=== PATIENT | female | born 1960 | race Caucasian/White ===

== ENCOUNTER 2016-12-05 14:50 | Inpatient (IN) | payer MEDICARE ==
[~2016-12-05] VITALS: Ht 165.1 cm; Wt 59.7 kg
--- NOTE | ~2016-12-05 | HP ---
PATIENT'S NAME: DEBBIE MAGALLANES [facility] AGE: 56 Y [address] ROOM: [place] [address] LOCATION: [facility] ADMIT DATE: 12/05/2016 History & Physical DISCHARGE DATE: FAMILY PHYSICIAN: JEANE TYLER MD ATTENDING PHYSICIAN: YUE SIDDIQUI DATE OF SERVICE: 12/05/2016 CHIEF COMPLAINT: Large left-sided acute subdural hematoma with significant mass effect, dilated left pupil. HISTORY OF PRESENT ILLNESS: The patient is a 56-year-old female patient who had probably an unwitnessed fall last night and was found at [facility] to have a large left-sided acute subdural hematoma with significant mass effect and midline shift. According to the notes from the referring physician, the patient was found laying in the lobby by ENT. She was transferred to the emergency at [facility]. Over there, the patient was unresponsive. The patient's examination was remarkable for asymmetry of her pupils. The left pupil was 5-mm and nonreactive. Right pupil was 3-mm and reactive. I met the patient in our emergency. The patient was intubated and sedated. Further history was limited. PAST MEDICAL AND SURGICAL HISTORY: Obtained from the notes. It is positive for alcohol abuse, anxiety, low back pain, depression, hyperlipidemia, hypertension, cerebrovascular accident, seizures, osteopenia, and hypothyroidism. It is also positive for lumpectomy, left breast, back surgery, and cholecystectomy. MEDICATIONS: Listed in the patient's chart. ALLERGIES: NO KNOWN DRUG ALLERGIES. SOCIAL HISTORY: Obtained from the notes. It is positive for significant alcohol intake. The patient lives alone. She is an active smoker. PATIENT'S NAME: DEBBIE MAGALLANES [facility] AGE: 56 Y [address] ROOM: [place] [address] LOCATION: [facility] ADMIT DATE: 12/05/2016 History & Physical DISCHARGE DATE: FAMILY PHYSICIAN: JEANE TYLER MD ATTENDING PHYSICIAN: YUE SIDDIQUI REVIEW OF SYSTEMS: Unobtainable given the patient's intubation and level of consciousness. PHYSICAL EXAMINATION: GENERAL: The patient was intubated and sedated. VITAL SIGNS: Systolic blood pressure was more than 160. HEAD: It was atraumatic. The sclerae examination was normal. CARDIOVASCULAR: She had palpable pulses on the upper extremities. NEUROLOGIC: It was limited. The pupils were 3-mm on the right and reactive to light, 5-mm on the left and sluggishly reactive. She had gag reflex. She had no motor movements on the upper extremities, but had flicker movements on the left lower extremity. GAIT: Not done. LYMPHATIC: Not done. INVESTIGATIONS: Noncontrast CT head done in [place], which I personally reviewed. It showed evidence of a very large left-sided acute subdural hematoma with significant mass effect and midline shift. IMPRESSION: A 56-year-old female patient who was diagnosed with a large left-sided acute subdural hematoma today. She was found unresponsive. She was taken to the emergency and further investigations showed large left subdural hematoma. Her examination at [facility] was remarkable for asymmetry of the pupils, left larger than the right,the patient was unresponsive. PLAN: The patient will be taken urgently for left craniotomy and evacuation of acute subdural hematoma +/- insertion of ventriculostomy tube. I discussed the situation with the neurointensivist here Dr. Knowles. Given the size of the hematoma and her concerning neurological examination, I recommended urgent evacuation of the hematoma plus-minus insertion of intracranial pressure monitor/ventriculostomy. After an emergency surgical consent was signed, the patient was taken urgently to surgery. It was pleasure taking care of this patient and thanks for having us involved. PATIENT'S NAME: DEBBIE MAGALLANES [facility] AGE: 56 Y [address] ROOM: [place] [address] LOCATION: [facility] ADMIT DATE: 12/05/2016 History & Physical DISCHARGE DATE: FAMILY PHYSICIAN: JEANE TYLER MD ATTENDING PHYSICIAN: YUE SIDDIQUI MD AB/soumya /[id number] CC: Jeane Tyler MD D: 202 T: 716 HISTORY & PHYSICAL
--- NOTE | ~2016-12-05 | OR ---
[facility] 56 [facility] [address] ROOM: [place] [address] LOCATION: GICU ADMIT DATE: 12/05/2016 OR/Procedure Report DISCHARGE DATE: FAMILY PHYSICIAN: JEANE CESAR MD ATTENDING PHYSICIAN: YUE SIDDIQUI SURGEON: Mohamud Knowles MD NUT DEHYDRATOR OPERATOR: Jacob Blackburn RN. DATE OF PROCEDURE: 12/05/2016 PROCEDURE: 1. Right 20-gauge radial arterial line. 2. Right internal jugular 8.5 Qatari quad lumen central line placement. INDICATION FOR PROCEDURE: 1. Need for perioperative [id number] blood pressure monitoring as well as frequent arterial blood gas analysis. 2. Need for central venous access for administration of fluid and blood products. Central venous pressure monitoring. PREOPERATIVE DIAGNOSES: 1. Large left subdural hematoma with impending herniation. 2. Obtundation. 3. History of alcohol abuse. 4. Hypertension. 5. Hyperlipidemia. 6. History of tobacco abuse. 7. Hypothyroidism. 8. Chronic anemia. POSTOPERATIVE DIAGNOSES: 1. Large left subdural hematoma with impending herniation. 2. Obtundation. 3. History of alcohol abuse. 4. Hypertension. 5. Hyperlipidemia. 6. History of tobacco abuse. 7. Hypothyroidism. 8. Chronic anemia. COMPLICATIONS: None noted. ESTIMATED BLOOD LOSS: Minimal. COMPLICATIONS: None noted. PATIENT'S NAME: DEBBIE MAGALLANES [facility] AGE: 56 Y [address] ROOM: [place] [address] LOCATION: [facility] ADMIT DATE: 12/05/2016 OR/Procedure Report DISCHARGE DATE: FAMILY PHYSICIAN: JEANE CESAR MD ATTENDING PHYSICIAN: YUE SIDDIQUI CONSENT: Not obtained preoperatively as the patient was obtunded and family members were not immediately present. Given her status of impending herniation we rushed to the operating room for emergent subdural evacuation. DESCRIPTION OF PROCEDURE: In the operating room, the patient in supine position with head of bed slightly elevated. Right wrist supinated. Sterile prep with ChloraPrep. Utilizing sterile real-time ultrasound guidance, a 20- gauge Arrow catheter was used to cannulate the right radial artery on the first attempt without difficulty. Pulsatile blood flow. Over a wire a 20-gauge Arrow catheter was inserted without difficulty. Wire and needle removed intact. Catheter de-aired and flushed with saline solution. Sterile occlusive Tegaderm dressing applied. Good correlation noninvasive blood pressure monitoring. After induction of anesthesia, the patient placed in supine position, ultrasound for confirmation of right internal jugular venous anatomy. Sterile prep with ChloraPrep x2 to the right neck. Sterile full-body drape, sterile gown and gloves used. Surgical mask and cap worn at all times. Utilizing 16- gauge needle in the anterior approach, right internal jugular vein was cannulated the first attempt without difficulty. Nonpulsatile blood flow. Dark blood aspirated. Over a wire, an 8.5 Qatari quad lumen central line was inserted to 16 cm without difficulty. Wire and needle removed intact. Catheter sutured in place. Sterile occlusive Tegaderm dressing applied. The patient tolerated the procedure well. Stat portable chest x-ray is ordered postoperatively. MOHAMUD KNOWLES MD RRS/modl /[id number] d: 12/06/16 0005 t: 12/14/16 0853, OPERATIVE SUMMARY
--- NOTE | ~2016-12-05 | OR ---
PATIENT'S NAME: DEBBIE MAGALLANES [facility] AGE: 56 Y [address] ROOM: [place] [address] LOCATION: GICU ADMIT DATE: 12/05/2016 OR/Procedure Report DISCHARGE DATE: FAMILY PHYSICIAN: JEANE CESAR MD ATTENDING PHYSICIAN: ADONIS CHARLES SURGEON: Adonis Charles MD ASSOCIATE BUYER: DATE OF PROCEDURE: 12/05/2016 ANESTHESIOLOGIST: Cade Knowles MD. ANESTHESIA: General. COMPLICATIONS: None. ESTIMATED BLOOD LOSS: 100 mL. PREOPERATIVE DIAGNOSIS: Large left-sided acute subdural hematoma with significant mass effect. POSTOPERATIVE DIAGNOSIS: Large left-sided acute subdural hematoma with significant mass effect. PROCEDURE: Left-sided craniotomy and evacuation of acute subdural hematoma. CLINICAL HISTORY: The patient is a 56-year-old female patient, known to be a heavy alcoholic, was found unresponsive earlier today. She was taken to the emergency in [place] and the patient was only responsive to painful stimulation. She was breathing spontaneously. She was noticed to have bruising on the left side of her face. It was also noticed that she has asymmetry of her pupils, left larger than the right side and was nonreactive. I was contacted and reviewed the imaging. I recommended transferring the patient over for urgent surgical intervention. I also recommended intubating the patient and administering 1 g/kg mannitol given the fixed and dilated left pupil. The patient arrived to our hospital intubated and ventilated. Her examination confirmed asymmetry of the pupils, left larger than the right side. It was sluggishly reactive to light here. I discussed the situation with neurointensivist physician. I recommended urgent evacuation. The patient was taken urgently to surgery. DESCRIPTION OF PROCEDURE: The patient was brought urgently from the emergency to the main operating theater, where she was given general anesthetic. Preoperative antibiotics were given. The patient was positioned supine on the table and all her joints and bony prominences were securely padded. Rodriguez catheter, calf compressors, and an arterial line were used throughout the PATIENT'S NAME: DEBBIE MAGALLANES [facility] AGE: 56 Y [address] ROOM: [place] [address] LOCATION: GICU ADMIT DATE: 12/05/2016 OR/Procedure Report DISCHARGE DATE: FAMILY PHYSICIAN: JEANE CESAR MD ATTENDING PHYSICIAN: ADONIS CHARLES procedure. The patient's head was clamped in 3 pins Parsons, the patient's head was turned to the right side. Then, the clamp was secured to the table. The hair overlying the left hemicranium was clipped off. Then, a trauma incision was marked. Surgical site was prepped and draped as per usual. The proposed skin incision was infiltrated with 0.25% Marcaine with epinephrine. Skin was sharply opened down to the bone and temporalis fascia, and Frida clips were used to control bleeding. Then, a musculocutaneous flap was reflected anteroinferiorly and held out of the way using fishhooks. Then, a high-speed Midas Toni drill was brought in and 3 russell holes were fashioned down to the dura and the bone flap was turned and elevated without any complications. Then, the dura was opened in a C-shaped fashion based anteroinferiorly. Immediately, I came across a very large acute subdural hematoma that was causing significant compression on the brain. The hematoma was completely evacuated using suction and irrigation. Any bleeding from the surface of the brain was controlled with bipolar. The subdural space was copiously irrigated with plain Plasma-Lyte till the return was clear. I was satisfied with that, so I proceeded to closure. The dura was reapproximated using 4-0 Nurolon. A central tack-up stitches were placed. The bone was then anchored to the skull with titanium plates and mini screws. A 1/8th Hemovac drain was left under the skin flap. The temporalis muscle was approximated using 2-0 Vicryl. The skin was then closed in layers with 2-0 Vicryl to the galea and luz maria for the skin. Sterile dressing was applied. At the end of the operation, the instrument and sponge counts were correct. The patient tolerated the operation without any complications. MD NIC RAJPUT/soumya /[id number] CC: MD Jeane Becerra MD d: 12/06/16 0201 t: 12/06/16 1325, OPERATIVE SUMMARY
--- NOTE | ~2016-12-05 | CON ---
PATIENT'S NAME: DEBBIE MAGALLANES [facility] AGE: 56 Y [address] ROOM: [place] [address] LOCATION: GICU ADMIT DATE: 12/05/2016 Consultation DISCHARGE DATE: FAMILY PHYSICIAN: JEANE CESAR MD ATTENDING PHYSICIAN: YUE CHARLES DATE OF CONSULTATION: 12/05/2016 REFERRING PHYSICIAN: Mohamud Knowles MD REASON FOR CONSULTATION: Neurointensive management. HISTORY OF PRESENT ILLNESS: Ms. Magallanes is a 56-year-old female, who was found down in her apartment this morning. The patient is a known alcoholic. She was taken to [facility], where she was found to be obtunded. She was subsequently intubated. CT scan of the head did reveal a large left frontal parietal temporal subdural hematoma with impending herniation. The patient was transferred to [facility] for definitive neurosurgical care. When the patient arrived in the Emergency Room, a quick survey was performed by the ER staff and Dr. Charles. The patient was given 100 g of mannitol IV. We emergently took the patient to the Operating Room for Dr. Charles to perform a left frontal parietal craniotomy with evacuation of subdural hematoma. This was done without incident or complications. A drain was placed and 200 mL of blood loss occurred. The patient was subsequently transferred to the ICU on the ventilator and sedation. I was not able to reach family members for further explanation of current incident nor the patient's past medical history. All further information was obtained from the patient's chart. PAST MEDICAL HISTORY: 1. Alcohol abuse. 2. History of falls. 3. Hypertension. 4. Hyperlipidemia. 5. Major depressive disorder. 6. General anxiety disorder. 7. Hypothyroidism. 8. Chronic anemia. 9. History of tobacco abuse. 10. History of seizure. 11. History of cerebrovascular accident x2. PATIENT'S NAME: DEBBIE MAGALLANES [facility] AGE: 56 Y [address] ROOM: [place] [address] LOCATION: GICU ADMIT DATE: 12/05/2016 Consultation DISCHARGE DATE: FAMILY PHYSICIAN: JEANE CESAR MD ATTENDING PHYSICIAN: YUE CHARLES 12. History of chronic low back pain with narcotic therapy. PAST SURGICAL HISTORY: 1. Back surgery x4. 2. Cholecystectomy. 3. Left breast lumpectomy. MEDICATIONS: 1. Magnesium. 2. Hydralazine. 3. Iron sulfate. 4. Fentanyl patch 12 mcg/hr. 5. Cymbalta. 6. Levothyroxine. 7. Losartan. 8. Seroquel. 9. Fosamax. 10. Lipitor. 11. Tylenol. 12. Toprol XL. 13. Multivitamin. 14. Folic acid. 15. Vitamin B12. 16. Vitamin D. 17. Calcium. ALLERGIES: NO KNOWN DRUG ALLERGIES. SOCIAL HISTORY: The patient lives apparently alone in [place], [place] in an apartment. She does drink alcohol. Unsure of the amounts; per records, the patient drinks about a bottle of vodka every two weeks. She does smoke tobacco. REVIEW OF SYSTEMS: Unattainable. PHYSICAL EXAMINATION: VITAL SIGNS: Temperature was 37.1, pulse was 58, blood pressure was 150/84, respiratory rate was 16, oxygen saturation was 100%, and FiO2 of 0.6. GENERAL: The patient is an elderly female, lying still in her ICU bed. HEENT: Head with intact clean and dry dressing. There is a drain in place. Eyes: Left pupil was 6 mm reactive. Right pupil was 4 mm reactive. Conjugate gaze. Nose: Not examined. Throat: Oral endotracheal tube is in place. NECK: Right internal jugular central line dressing was intact. PATIENT'S NAME: DEBBIE MAGALLANES [facility] AGE: 56 Y [address] ROOM: [place] [address] LOCATION: [facility] ADMIT DATE: 12/05/2016 Consultation DISCHARGE DATE: FAMILY PHYSICIAN: JEANE CESAR MD ATTENDING PHYSICIAN: YUE CHARLES CHEST: Decreased at bases bilaterally. Otherwise, clear. CARDIOVASCULAR: Regular rate and rhythm. ABDOMEN: Soft. Bowel sounds are present. Nondistended. EXTREMITIES: No edema was noted. DERMATOLOGIC: No rashes were noted. NEUROLOGIC: The patient is coughing over breathing the vent. The patient is not following commands. She does not open eyes to voice. There was some spontaneous movement in bilateral lower extremities. She does withdraw all extremities. LABORATORY DATA: The pH of 7.48, pCO2 of 38, pO2 of 232, CO2 content of 30, and base excess of 4.6. Lactate of 1.7. CMS is pending at this time. White blood cell count was 4.2, hemoglobin was 9.6, and platelets were 103. INR is 0.9. DIAGNOSTIC STUDIES: Chest x-ray is pending at this point. ASSESSMENT AND PLAN: 1. Neurologic: Left large subdural hematoma, status post craniotomy with evacuation of hematoma. Drain is in place. We will obtain a repeat head CT in the a.m. We will place the patient on Precedex and fentanyl for sedation at this time. We will evaluate clinically for ability for extubation in the next 24 to 48 hours hopefully. The patient is at risk with baseline alcohol, dementia, and history of cerebrovascular accident of having some underlying neurologic issues, this may be difficult to fully recover from. Dr. Charles did speak with family following the procedure. I have not been able to reach them. 2. Pulmonary: Acute respiratory failure secondary to obtundation from neurologic injury. The patient was placed on SIMV. She does over breathe the vent. However, she will not be able to protect her airway. There has been evidence of aspiration initially upon my assessment in the Emergency Room. We did suction thick secretions out. She may be at risk of developing aspiration pneumonia. At this time, we will await for clinical development. 3. Cardiovascular: Hypertension and hyperlipidemia. At this point, we will control with IV medications with goal systolic blood pressures in the 100 to 130. 4. Gastrointestinal, Fluid, Electrolytes, and Nutrition: OG will be placed. We will hold on feedings at this point, as the patient may have ability for extubation in the next 12 to 24 hours. GI prophylaxis with Carafate. Lytes are pending at this time. 5. Renal: Rodriguez is in place. Questionable whether the patient has acute or chronic renal insufficiency. We will obtain labs from prior PATIENT'S NAME: DEBBIE MAGALLANES [facility] AGE: 56 Y [address] ROOM: [id number] [place] [id number] LOCATION: GICU ADMIT DATE: 12/05/2016 Consultation DISCHARGE DATE: FAMILY PHYSICIAN: JEANE CESAR MD ATTENDING PHYSICIAN: YUE CHARLES and [facility] to further delineate acute versus chronic insufficiency. 6. Infectious Disease: See pulmonary. 7. Endocrine: Hypothyroidism. We are going to obtain a TSH level. We will likely restart the patient's levothyroxine tomorrow. 8. Hematologic: We placed the patient with Milo for deep venous thrombosis prophylaxis. Not a candidate for chemoprophylaxis with recent subdural hematoma. Critical care time spent with the patient was 38 minutes. MOHAMUD KNOWLES MD RRS/modl /[id number] d: 12/06/16 0459 t: 12/14/16 0851, CONSULTATION REPORT
--- NOTE | ~2016-12-05 | ENPV ---
Vascular Lower Extremities DVT Study Procedure Demographics Patient Name DEBBIE MAGALLANES Date of Study 12/10/2016 Patient Number [id number] Gender Female Date of 1960 Age 56 Visit Number [id number] Height Accession Number [id number] Weight Room Number [id number] BSA BMI Referring Cade Knowles Interpreting Salas Mckeon MD Physician Physician Eleni Harman MD Physician Ordering Physician Cade Knowles Production Sound Mixer Driver Trainer Andrés Lopez BS, RT Conclusions Summary No evidence of deep vein thrombosis or superficial thrombophlebitis in the lower extremities bilaterally . Procedure Type of Study: Veins:Lower Extremities DVT Study, Venous Duplex Lower Extremity Bilateral. Additional Indications:Immobility Patient Status:Routine. Study Location:Inpatient Portable. Technical Quality:Adequate visualization. Velocities are measured in cm/s ; Diameters are measured in cm Right Lower Extremities DVT Study Measurements Right 2D and Doppler Measurements + + + + +------+------+ + !Location !Visualized!Compressibility!Thrombosis!Signal!Reflux!Reflux ! ! ! ! ! ! ! !(sec) ! + + + + +------+------+ + !GSV Thigh !Yes !Yes !None !Phasic!No ! ! + + + + +------+------+ + !Common !Yes !Yes !None !Phasic!No ! ! !Femoral ! ! ! ! ! ! ! + + + + +------+------+ + !Prox !Yes !Yes !None !Phasic!No ! ! !Femoral ! ! ! ! ! ! ! + + + + +------+------+ + !Mid Femoral!Yes !Yes !None !Phasic!No ! ! + + + + +------+------+ + !Dist !Yes !Yes !None !Phasic!No ! ! !Femoral ! ! ! ! ! ! ! + + + + +------+------+ + !Popliteal !Yes !Yes !None !Phasic!No ! ! + + + + +------+------+ + !Gastroc !Yes !Yes !None !Phasic!No ! ! + + + + +------+------+ + !PTV !Yes !Yes !None !Phasic!No ! ! + + + + +------+------+ + !Peroneal !Yes !Yes !None !Phasic!No ! ! + + + + +------+------+ + Left Lower Extremities DVT Study Measurements Left 2D and Doppler Measurements + + + + +------+------+ + !Location !Visualized!Compressibility!Thrombosis!Signal!Reflux!Reflux ! ! ! ! ! ! ! !(sec) ! + + + + +------+------+ + !GSV Thigh !Yes !Yes !None !Phasic!No ! ! + + + + +------+------+ + !Common !Yes !Yes !None !Phasic!No ! ! !Femoral ! ! ! ! ! ! ! + + + + +------+------+ + !Prox !Yes !Yes !None !Phasic!No ! ! !Femoral ! ! ! ! ! ! ! + + + + +------+------+ + !Mid Femoral!Yes !Yes !None !Phasic!No ! ! + + + + +------+------+ + !Dist !Yes !Yes !None !Phasic!No ! ! !Femoral ! ! ! ! ! ! ! + + + + +------+------+ + !Popliteal !Yes !Yes !None !Phasic!No ! ! + + + + +------+------+ + !Gastroc !Yes !Yes !None !Phasic!No ! ! + + + + +------+------+ + !PTV !Yes !Yes !None !Phasic!No ! ! + + + + +------+------+ + !Peroneal !Yes !Yes !None !Phasic!No ! ! + + + + +------+------+ + Signature dtt: YAA TORRES dtd: 12/10/16 1549 Physician Self Edit
--- NOTE | ~2016-12-05 | DS ---
PATIENT'S NAME: DEBBIE MAGALLANES [facility] AGE: 56 Y [address] ROOM: [id number] [place], [place] [address] LOCATION: GICU ADMIT DATE: 12/05/2016 Discharge Summary DISCHARGE DATE: 12/12/2016 FAMILY PHYSICIAN: Kevin Tyler MD ATTENDING PHYSICIAN: Adonis Charles ADMISSION MAIN DIAGNOSIS: Large left acute subdural hematoma with significant mass effect, fixed dilated left pupil, status post fall. DISCHARGE MAIN DIAGNOSIS: Large left acute subdural hematoma with significant mass effect, fixed dilated left pupil, status post fall. PROCEDURES DURING ADMISSION: Left-sided craniotomy and evacuation of acute subdural hematoma. COMPLICATIONS DURING ADMISSION: None. MEDICATIONS ON DISCHARGE: 1. Vitamin B12 1000 mcg p.o. once daily. 2. Ferrous sulfate 325 mg p.o. b.i.d. 3. Folic acid 1 mg p.o. once daily. 4. Hydralazine 25 mg p.o. t.i.d. 5. Synthroid 325 mcg p.o. once daily. 6. Losartan 100 mg p.o. once daily. 7. Metoprolol ER 50 mg p.o. once daily. 8. Seroquel 150 mg p.o. b.i.d. 9. Advair 250/50 Diskus 1 puff b.i.d. 10. Dulera 200 mcg 2 puffs inhaler b.i.d. 11. Tums 500 mg p.o. every 6 hours p.r.n. 12. Magnesium oxide 400 mg p.o. t.i.d. 13. Vitamin D3 1000 units p.o. once daily. 14. Alendronate 70 mg p.o. every week. DISCHARGE INSTRUCTIONS AND FOLLOWUP APPOINTMENTS: 1. With Dr. Adonis Charles on December 25, 2016 (the patient requires noncontrast CT head prior to the appointment). 2. Discontinue head staple/suture on December 19, 2016, by family physician. 3. Call my office for any concerns regarding wound healing or for any new neurologic symptoms. 4. Only calf compressors for DVT prophylaxis, no medical anticoagulation, no antiplatelet therapy. HOSPITAL COURSE: The patient is a 56-year-old female patient, known to be heavy alcoholic, was found unresponsive on December 05, 2016. She was PATIENT'S NAME: DEBBIE MAGALLANES [facility] AGE: 56 Y [address] ROOM: [id number], [place] [address] LOCATION: GICU ADMIT DATE: 12/05/2016 Discharge Summary DISCHARGE DATE: 12/12/2016 FAMILY PHYSICIAN: Kevin Tyler MD ATTENDING PHYSICIAN: Adonis Charles investigated with a noncontrast CT head in [place], and that showed a large left-sided acute subdural hematoma. Her neurological examination was remarkable for fixed dilated left pupil. The patient was urgently transferred over and underwent urgent left craniotomy and evacuation of acute subdural hematoma. Postoperatively, the patient did very well. She was extubated on postoperative day one. Her neurological examination significantly improved. She was alert, oriented, and moving all 4 extremities postoperatively. She had a noncontrast CT head postoperatively and that showed complete evacuation of the hematoma and no complications. Given the history of trauma, alcoholism, and brain atrophy, the scan showed evidence of a small right frontal subdural hematoma and a small left occipital subdural hematoma, which were asymptomatic. The patient was seen by the Hospitalist Team for management of alcohol withdrawal. She was started on the appropriate vitamin replacement. She had no seizures during the admission. She mobilized very well with physical therapy and occupational therapy. She also had another postoperative CT scan, and that showed no rebleeding or reaccumulation. On the day of discharge, the patient was examined. She continued to do very well. She had no new neurological deficits. She was alert and oriented and moving all 4 extremities. Her incision was healing very well. I thought that this patient would benefit from intensive inpatient rehabilitation. Given that, a Swing bed transfer was arranged to [facility]. I discussed the discharge instructions with her team and the patient herself and her family. I also discussed discharge instructions with Dr. Tyler ( receiving physician). The patient will be transferred to [facility] today. MD NIC RAJPUT/soumya /[id number] CC: MD Lili Rasheed MD d: 12/13/16 0346 t: 12/13/16 1116, DISCHARGE SUMMARY
--- NOTE | ~2016-12-05 | CON ---
PATIENT'S NAME: DEBBIE MAGALLANES [facility] AGE: 56 Y [address] ROOM: [place] [address] LOCATION: GICU ADMIT DATE: 12/05/2016 Consultation DISCHARGE DATE: FAMILY PHYSICIAN: JEANE CESAR MD ATTENDING PHYSICIAN: YUE CHARLES DATE OF CONSULTATION: 12/06/2016 REFERRING PHYSICIAN: Cade Knowles MD REASON FOR CONSULTATION: Medical management. HISTORY OF PRESENT ILLNESS: A 56-year-old lady who was found down in her apartment, was brought to the emergency department and was found to be obtunded at the outside hospital, intubated, and a CAT scan was done, which did show a subdural hematoma with impending herniation. She was transferred here for an urgent neurosurgical management. The patient was taken to the OR by Dr. Charles and a craniotomy was done with evacuation of the hematoma without any incidental complications. She today is extubated. On my encounter, she does not remember what happened yesterday, the last thing she remembers is that falling down. She cannot tell us how long she had been down or what caused the onset. On further inquiry, she says that her head is hurting, she has chest pain, her abdomen hurts. She states she has regular bowel movements. There is no fever or chills though. She denied any feeling cold or having chills. She denied any leg swelling, PND, or orthopnea. PAST MEDICAL HISTORY: O2-dependent COPD, hypertension, dyslipidemia, hypothyroidism, past history of a cerebrovascular accident, obstructive sleep apnea on CPAP, depression, heavy alcohol use. PAST SURGICAL HISTORY: Cholecystectomy and bladder suspension surgery. ALLERGIES: NO KNOWN DRUG ALLERGIES. SOCIAL HISTORY: The patient lives in [place], [place]. Lives by herself. Alcohol abuse history is not clear. There are some instances she reported that she drinks 1 L of vodka everyday. She smokes 1 pack of cigarettes. Denied any history of alcohol withdrawal though. FAMILY HISTORY: PATIENT'S NAME: DEBBIE MAGALLANES [facility] AGE: 56 Y [address] ROOM: [place] [address] LOCATION: GICU ADMIT DATE: 12/05/2016 Consultation DISCHARGE DATE: FAMILY PHYSICIAN: JEANE CESAR MD ATTENDING PHYSICIAN: YUE CHARLES Per review of the chart showed mother and had history of CVA. No history of hypertension or heart disease. MEDICATIONS: Per MAR. REVIEW OF SYSTEMS: All other systems are reviewed and were negative except what is mentioned in the HPI. PHYSICAL EXAMINATION: VITAL SIGNS: Blood pressure 120/65 per arterial line, saturating 95% on room air, heart rate 64, afebrile. GENERAL: No acute distress. Alert and oriented to herself only. Fine tremors of the hands noted. CARDIOVASCULAR: S1 and S2. No murmurs, gallops, or rubs. HEENT: Head is surgically dressed secondary to the craniotomy. Eyes: Nonicteric. No pallor. Oropharynx: Dry mucous membranes. LUNGS: Bilateral occasional expiratory wheezes. No crepitations. Equal air entry. ABDOMEN: Soft, nontender, nondistended. Bowel sounds are present. EXTREMITIES: No clubbing, cyanosis, or edema. SKIN: Appears dehydrated without any rashes or blemishes. ENDOCRINE: No thyromegaly or cushingoid features noted. NEUROLOGIC: Right upper extremity power 4/5. Right lower extremity power 5/5. Left extremities power 5/5. Facial droop on the left side noted. LABORATORY DATA: Accu-Cheks today 139, 129, and 164. CPK level 1887. Troponin I 0.116. Hemoglobin 8.6, white count 6.2, and platelets 97. BUN 30, creatinine 1.3, sodium 153, potassium 3.9, chloride 119, bicarbonate 24, and calcium 7.5. Albumin is low at 2.7. AST and ALT are elevated at 616 and 229. Ionized calcium is 4.0. Serum osmolality is 331. TSH is 2.10. ASSESSMENT AND PLAN: 1. Subdural hematoma, status post evacuation. 2. Hypernatremia. 3. Rhabdomyolysis. 4. Acute kidney injury. 5. Alcohol withdrawal and abuse. 6. Generalized anxiety disorder. 7. History of seizure. 8. History of cerebrovascular accident. 9. Chronic respiratory failure, hypoxic secondary to chronic obstructive pulmonary disease. PATIENT'S NAME: DEBBIE MAGALLANES [facility] AGE: 56 Y [address] ROOM: [address] [address] LOCATION: [facility] ADMIT DATE: 12/05/2016 Consultation DISCHARGE DATE: FAMILY PHYSICIAN: JEANE CESAR MD ATTENDING PHYSICIAN: YUE CHARLES 10. Narcotic dependence. PLAN: Found down for an unknown period of time, have evidence of rhabdomyolysis, elevated troponin-I, and liver enzymes which are very likely secondary to rhabdomyolysis. She needs more volume resuscitation with hypotonic fluids slowly keeping in mind of the recent brain surgery and the concern for brain swelling. We will defer that to neurointensivist. Again, JESUS MANUEL likely to hypotension or rhabdomyolysis. We will monitor I and O's. Agree with alcohol withdrawal protocol. We would add Librium 50 mg today, which can be titrated up per Ativan needs tomorrow. EKG for QTc interval monitoring as she is on home Seroquel. We will add Hb A1c. We will start her on regular COPD medications including DuoNeb and Symbicort. We will provide further recommendations depending on her progress in the hospital. MD MARIANNE COLEMAN/soumya /[id number] d: 12/06/169 t: 12/07/16 1143, CONSULTATION REPORT
--- NOTE | ~2016-12-05 | ENPV ---
Vascular Lower Extremities DVT Study Procedure Demographics Patient Name DEBBIE MAGALLANES Date of Study 12/06/2016 Patient Number [id number] Gender Female Date of 1960 Age 56 Visit Number [id number] Height Accession Number [id number] Weight Room Number G6211 BSA BMI Referring Cade Knowles Interpreting Salas Mckeon MD Physician Physician Eleni Harman MD Physician Ordering Physician Cade Konwles Pulp Grinder [employer] Sex Offender Treatment Professional Andrés Lopez BS, RT Conclusions Summary No evidence of deep vein thrombosis or superficial thrombophlebitis in the lower extremities bilaterally . Procedure Type of Study: Veins:Lower Extremities DVT Study, Venous Duplex Lower Extremity Bilateral. Additional Indications:Immobility Patient Status:Routine. Study Location:Inpatient Portable. Technical Quality:Adequate visualization. Velocities are measured in cm/s ; Diameters are measured in cm Right Lower Extremities DVT Study Measurements Right 2D and Doppler Measurements + + + + +------+------+ + !Location !Visualized!Compressibility!Thrombosis!Signal!Reflux!Reflux ! ! ! ! ! ! ! !(sec) ! + + + + +------+------+ + !GSV Thigh !Yes !Yes !None !Phasic!No ! ! + + + + +------+------+ + !Common !Yes !Yes !None !Phasic!No ! ! !Femoral ! ! ! ! ! ! ! + + + + +------+------+ + !Prox !Yes !Yes !None !Phasic!No ! ! !Femoral ! ! ! ! ! ! ! + + + + +------+------+ + !Mid Femoral!Yes !Yes !None !Phasic!No ! ! + + + + +------+------+ + !Dist !Yes !Yes !None !Phasic!No ! ! !Femoral ! ! ! ! ! ! ! + + + + +------+------+ + !Popliteal !Yes !Yes !None !Phasic!No ! ! + + + + +------+------+ + !Gastroc !Yes !Yes !None !Phasic!No ! ! + + + + +------+------+ + !PTV !Yes !Yes !None !Phasic!No ! ! + + + + +------+------+ + !Peroneal !Yes !Yes !None !Phasic!No ! ! + + + + +------+------+ + Left Lower Extremities DVT Study Measurements Left 2D and Doppler Measurements + + + + +------+------+ + !Location !Visualized!Compressibility!Thrombosis!Signal!Reflux!Reflux ! ! ! ! ! ! ! !(sec) ! + + + + +------+------+ + !GSV Thigh !Yes !Yes !None !Phasic!No ! ! + + + + +------+------+ + !Common !Yes !Yes !None !Phasic!No ! ! !Femoral ! ! ! ! ! ! ! + + + + +------+------+ + !Prox !Yes !Yes !None !Phasic!No ! ! !Femoral ! ! ! ! ! ! ! + + + + +------+------+ + !Mid Femoral!Yes !Yes !None !Phasic!No ! ! + + + + +------+------+ + !Dist !Yes !Yes !None !Phasic!No ! ! !Femoral ! ! ! ! ! ! ! + + + + +------+------+ + !Popliteal !Yes !Yes !None !Phasic!No ! ! + + + + +------+------+ + !Gastroc !Yes !Yes !None !Phasic!No ! ! + + + + +------+------+ + !PTV !Yes !Yes !None !Phasic!No ! ! + + + + +------+------+ + !Peroneal !Yes !Yes !None !Phasic!No ! ! + + + + +------+------+ + Signature dtt: YAA TORRES dtd: 12/06/16 0946 Physician Self Edit
[~2016-12-05 14:50] MED LIST changes: -ALENDRONATE SOD70 MG PO; -APRESOLINE25 MG PO; -CALCIUM 600 +1 EA12 PO; -DULOXETINE HCL30 MG PO; -DURAGESIC1 EAC1 TRANS; -FEOSOL325 MG PO; -FOLIC ACID1 MG PO; -SEROQUEL100 MG PO; -TOPROL XL 5050 MG PO; -VITAMIN B-121000 MCG PO
[2016-12-05 16:13] LABS: HEMATOCRIT 25.6 % (33.0-46.0); HEMOGLOBIN 8.3 g/dL (10.0-15.0); MCH 31.1 pg (27.0-34.0); MCHC 32.4 gm/dL (32.0-36.5); MCV 95.9 fl (83.0-98.0); MPV 9.2 fl (9.4-12.4); PLATELET COUNT 103 K/uL (150-450); RBC 2.67 M/uL (3.50-5.50); RDW-CV 16.4 % (11.9-14.6); WBC 4.2 K/uL (4.0-11.0)
[2016-12-05 16:19] LABS: INR - (THERAPEUTIC) 0.98 (0.92-1.07); PROTIME 10.3 SECONDS (9.8-11.4); PTT 26 SECONDS (25-32)
[2016-12-05 16:59] LABS: ABSOLUTE NEUTROPHIL CT (ANC) 3.8 K/uL (1.8-7.8); LYMPHOCYTE # 0.2 K/uL (0.8-4.0); LYMPHOCYTE % 5 %; MONOCYTE # 0.2 K/uL (0.0-1.0); SEGMENTED NEUTROPHIL # 3.8 K/uL (1.8-7.8); SEGMENTED NEUTROPHIL % 91 %
--- NOTE | 2016-12-05 20:14 | NUR ---
Patient arrived from surgery at 1745.
[2016-12-05 20:24] LABS: BICARBONATE 28.3 mmol/L (18.0-23.0); LACTATE 1.7 mEq/L (0.50-1.60); PCO2 38 mmHg (35-45); PO2 232 mmHg (80-90)
[2016-12-05 20:33] LABS: ALBUMIN 3.2 gm/dL (3.5-5.0); ANION GAP 15.9 (10.0-19.0); CALCIUM 8.1 mg/dL (8.5-10.5); CREATININE 1.3 mg/dL (0.5-1.1); PHOSPHORUS 2.1 mg/dL (2.5-4.9); POTASSIUM 3.9 mMol/L (3.7-5.1)
[2016-12-06 02:40] LABS: BICARBONATE 28.1 mmol/L (18.0-23.0); PCO2 48 mmHg (35-45); PO2 485 mmHg (80-90); POTASSIUM 3.8 mEq/L (3.7-5.1); SODIUM 139 mEq/L (135-145)
[2016-12-06 04:04] LABS: BICARBONATE 25.7 mmol/L (18.0-23.0); PCO2 37 mmHg (35-45); PO2 177 mmHg (80-90)
[2016-12-06 04:14] LABS: INR - (THERAPEUTIC) 0.95 (0.92-1.07)
[2016-12-06 04:21] LABS: ALBUMIN 2.7 gm/dL (3.5-5.0); CALCIUM 7.5 mg/dL (8.5-10.5); CREATININE 1.3 mg/dL (0.5-1.1); MAGNESIUM 1.8 mg/dL (1.8-2.6); POTASSIUM 3.9 mMol/L (3.7-5.1); TOTAL BILIRUBIN 0.4 mg/dL (0.0-1.5); TOTAL PROTEIN 6.4 g/dL (6.0-8.4)
[2016-12-06 04:24] LABS: ANION GAP 13.9 (10.0-19.0)
[2016-12-06 04:26] LABS: BASOPHIL % 0.2 %; HEMOGLOBIN 8.6 g/dL (10.0-15.0); IMMATURE GRANULOCYTE % 0.6 %; LYMPHOCYTE # 0.8 K/uL (0.8-4.0); MCHC 33.1 gm/dL (32.0-36.5); MCV 99.6 fl (83.0-98.0); MONOCYTE # 0.5 K/uL (0.0-1.0); MONOCYTE % 7.4 %; MPV 10.2 fl (9.4-12.4); NEUTROPHIL # (ANC) 4.9 K/uL (1.8-7.8); NEUTROPHIL % 78.8 %; NRBC % 0.3 /100WBC (0-0.00); PLATELET COUNT 97 K/uL (150-450); RBC 2.61 M/uL (3.50-5.50); WBC 6.2 K/uL (4.0-11.0)
--- NOTE | 2016-12-06 05:04 | NUR ---
Significant Event: Precedex at 0.3 mcg/kg/min. Patient follows commands and moves spontaneously x4 extremities. Nods appropriately. Pupils unequal but brisk. Opens eyes to minimal verbal stimuli. 250 ml NS bolus given x4 for SBP <100 and CVP <8. SBP 90-120s. CVP 5-9. SIMV 40% Fi02. Overbreathes at times. Lungs clear to slightly coarse. ETC02 32-35. Active bowel sounds. No BM. OG to LIS. Rodriguez drained 760 ml light yellow urine. Surgical incision to L) head covered in gauze wrap with small shadow drainage. Hemovac to site drained 200 ml serosanguinous drainage. Fentanyl gtt at 50 mcg/kg/hour. Follow up:
--- NOTE | 2016-12-06 05:21 | NUR ---
Patient currently on the ventilator. FiO2 weaned down to 40% this shift. O2 sats 96-100%. ETCO2 was 32-35 throughout the shift. Breathsounds slightly coarse throughout bilaterally, suctioning scant to small amounts of clear thin secretions, but white thick at times. ETT was secured with an ETAD this shift. Will continue to monitor patient.
[2016-12-06] MEDS ORDERED: APRESOLINE25 MG PO (10:29)
[2016-12-06] MEDS ORDERED: DURAGESIC1 EAC1 TRANS (10:29)
[2016-12-06] MEDS ORDERED: FEOSOL325 MG PO (10:29)
[2016-12-06] MEDS ORDERED: TOPROL XL 5050 MG PO (10:30)
[2016-12-06] MEDS ORDERED: SEROQUEL100 MG PO (10:30)
[2016-12-06] MEDS ORDERED: DULOXETINE HCL30 MG PO (10:30)
[2016-12-06] MEDS ORDERED: VITAMIN B-121000 MCG PO (10:38)
[2016-12-06] MEDS ORDERED: ALENDRONATE SOD70 MG PO (10:38)
[2016-12-06] MEDS ORDERED: CALCIUM 600 +1 EA12 PO (10:39)
[2016-12-06] MEDS ORDERED: FOLIC ACID1 MG PO (10:39)
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
--- NOTE | 2016-12-06 17:19 | NUR ---
D: HEAD BLEED I: OX>94%, DULERA 200/5 R: EXTUBATED PT @ 0955 TO A 4 LPM NC, PRIOR TO EXTUBATION PT WAS ACHIEVING VT'S 500-600, RR 10-16, NIF -39, PT'S OXYGEN WAS WEANED DOWN TO ROOM AIR P: CONT.
--- NOTE | 2016-12-06 17:48 | NUR ---
Significant Event:NEURO: A&O x3. Some dysarthia and dysphasia. Weakness in extremities. Stood and pivoted, 2 assist. Some signs of withdrawal - tremors, mild hallucinations, anxiety. CIWA 11. CARDIO: SBP 120s-130s. HR 70s-80s. RESP: Room air. 95% Follow up: Transfer out of ICU tomorrow.
[2016-12-07 04:43] LABS: BASOPHIL % 0.1 %; EOSINOPHIL # 0.1 K/uL (0.0-0.5); EOSINOPHIL % 2.1 %; HEMATOCRIT 21.8 % (33.0-46.0); IMMATURE GRANULOCYTE # 0.1 K/uL (0.0-0.3); IMMATURE GRANULOCYTE % 1.2 %; LYMPHOCYTE % 30.6 %; MCV 103.8 fl (83.0-98.0); MONOCYTE # 0.4 K/uL (0.0-1.0); MONOCYTE % 5.7 %; MPV 10.6 fl (9.4-12.4); NEUTROPHIL % 60.3 %; NRBC % 0 /100WBC (0-0.00); RDW-CV 16.6 % (11.9-14.6); WBC 6.7 K/uL (4.0-11.0)
[2016-12-07 04:48] LABS: HEMOGLOBIN 6.8 g/dL (10.0-15.0); MCH 32.4 pg (27.0-34.0); MCHC 31.2 gm/dL (32.0-36.5); PLATELET COUNT 57 K/uL (150-450)
[2016-12-07 04:54] LABS: INR - (THERAPEUTIC) 0.95 (0.92-1.07)
[2016-12-07 05:01] LABS: ALBUMIN 2.4 gm/dL (3.5-5.0); CALCIUM 7.5 mg/dL (8.5-10.5); CREATININE 0.8 mg/dL (0.5-1.1); TOTAL PROTEIN 5.5 g/dL (6.0-8.4)
[2016-12-07 05:02] LABS: ANION GAP 9.8 (10.0-19.0); POTASSIUM 2.8 mMol/L (3.7-5.1); TOTAL BILIRUBIN 0.3 mg/dL (0.0-1.5)
--- NOTE | 2016-12-07 07:18 | NUR ---
Significant Event: Patient alert, confused at times, frequently mixes up words. Follows commands. Pupils are unequal, but reactive. Left side facial droop. SR with HRs 60s-80s. Afibrile. Active bowel sounds, finger foods advanced as tolerate, no BM. Patient booth was d/c on previous shift, no void, bladder scan x2, order to straight cath after volume >400ml. 810ml out. Patient IVF switched from isolyte to D5, NA of 148. Hemovac to crani site, 70ml out. D/C central line and art line. Follow up: Continue.
[2016-12-07 08:44] LABS: BASOPHIL % 0.1 %; EOSINOPHIL # 0.2 K/uL (0.0-0.5); EOSINOPHIL % 2.1 %; HEMATOCRIT 22.9 % (33.0-46.0); IMMATURE GRANULOCYTE # 0.1 K/uL (0.0-0.3); IMMATURE GRANULOCYTE % 1.6 %; LYMPHOCYTE # 2.5 K/uL (0.8-4.0); LYMPHOCYTE % 30.7 %; MCH 32.9 pg (27.0-34.0); MCHC 31.9 gm/dL (32.0-36.5); MCV 103.2 fl (83.0-98.0); MONOCYTE # 0.5 K/uL (0.0-1.0); MONOCYTE % 5.7 %; MPV 10.1 fl (9.4-12.4); NEUTROPHIL # (ANC) 4.8 K/uL (1.8-7.8); NEUTROPHIL % 59.8 %; NRBC % 0 /100WBC (0-0.00); PLATELET COUNT 64 K/uL (150-450); RBC 2.22 M/uL (3.50-5.50); RDW-CV 16.7 % (11.9-14.6)
[2016-12-07 08:45] LABS: HEMOGLOBIN 7.3 g/dL (10.0-15.0)
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
[2016-12-07 13:51] LABS: EOSINOPHIL # 0.2 K/uL (0.0-0.5); EOSINOPHIL % 2.4 %; HEMATOCRIT 21.9 % (33.0-46.0); IMMATURE GRANULOCYTE # 0.1 K/uL (0.0-0.3); IMMATURE GRANULOCYTE % 0.8 %; LYMPHOCYTE # 1.8 K/uL (0.8-4.0); LYMPHOCYTE % 27.7 %; MCV 98.2 fl (83.0-98.0); MONOCYTE # 0.4 K/uL (0.0-1.0); MONOCYTE % 5.9 %; MPV 9.6 fl (9.4-12.4); NEUTROPHIL # (ANC) 4.2 K/uL (1.8-7.8); NEUTROPHIL % 63.2 %; NRBC % 0 /100WBC (0-0.00); RBC 2.23 M/uL (3.50-5.50); WBC 6.6 K/uL (4.0-11.0)
[2016-12-07 13:52] LABS: HEMOGLOBIN 7.1 g/dL (10.0-15.0); MCH 31.8 pg (27.0-34.0); MCHC 32.4 gm/dL (32.0-36.5); PLATELET COUNT 135 K/uL (150-450); RDW-CV 19.7 % (11.9-14.6)
[2016-12-07 14:02] LABS: BLOOD UREA NITROGEN 13 mg/dL (6-24); CALCIUM 7.9 mg/dL (8.5-10.5); CHLORIDE 114 mMol/L (96-110); CO2 29 mMol/L (22-32); CREATININE 0.6 mg/dL (0.5-1.1)
[2016-12-07 14:04] LABS: ANION GAP 8.8 (10.0-19.0); POTASSIUM 3.8 mMol/L (3.7-5.1); SODIUM 148 mMol/L (135-145)
--- NOTE | 2016-12-07 17:48 | NUR ---
A/ox3. Disoriented to day at times, but gives correct month. Makes inappropriate statements at times. Moves x4 spontaneously. HR 60-80s SBP 100-130s. Afebrile. Gave 2 units PRBS and 2 units platlets for low Hgb and platlets. Voids per bedside camode. D/C'd crainiotomy drain. Follow up: Abdominal CT and noe tests to look for possible internal bleed.
[2016-12-07 22:18] LABS: HEMOGLOBIN 8.7 g/dL (10.0-15.0)
[2016-12-07 22:19] LABS: HEMATOCRIT 26.7 % (33.0-46.0)
[2016-12-08 03:28] LABS: BASOPHIL % 0.3 %; EOSINOPHIL # 0.2 K/uL (0.0-0.5); EOSINOPHIL % 3.1 %; HEMATOCRIT 26.6 % (33.0-46.0); HEMOGLOBIN 8.7 g/dL (10.0-15.0); IMMATURE GRANULOCYTE # 0.1 K/uL (0.0-0.3); IMMATURE GRANULOCYTE % 0.8 %; LYMPHOCYTE % 26.4 %; MCH 31.2 pg (27.0-34.0); MCHC 32.7 gm/dL (32.0-36.5); MCV 95.3 fl (83.0-98.0); MONOCYTE # 0.5 K/uL (0.0-1.0); MONOCYTE % 6.7 %; MPV 10.1 fl (9.4-12.4); NEUTROPHIL # (ANC) 4.8 K/uL (1.8-7.8); NEUTROPHIL % 62.7 %; NRBC % 0 /100WBC (0-0.00); PLATELET COUNT 158 K/uL (150-450); RBC 2.79 M/uL (3.50-5.50); RDW-CV 20.7 % (11.9-14.6); WBC 7.6 K/uL (4.0-11.0)
[2016-12-08 03:44] LABS: ALBUMIN 2.6 gm/dL (3.5-5.0); ALK PHOS 87 IU/L (33-138); ALT 94 IU/L (12-78); AST 158 IU/L (10-40); BLOOD UREA NITROGEN 10 mg/dL (6-24); CALCIUM 8.5 mg/dL (8.5-10.5); CHLORIDE 114 mMol/L (96-110); CO2 29 mMol/L (22-32); CREATININE 0.6 mg/dL (0.5-1.1); POTASSIUM 3.5 mMol/L (3.7-5.1); TOTAL BILIRUBIN 0.3 mg/dL (0.0-1.5); TOTAL PROTEIN 5.9 g/dL (6.0-8.4)
[2016-12-08 03:45] LABS: ANION GAP 10.5 (10.0-19.0); PHOSPHORUS 0.4 mg/dL (2.5-4.9); SODIUM 150 mMol/L (135-145)
--- NOTE | 2016-12-08 05:36 | NUR ---
Significant Event:Patient is A/O to self only. Aphasic, frequently ventures away from conversation. Pupils equal/reactive. CIWA score =3. Follows commands x4 extremeties. R) crani incision stapled, telfa pad stapled in place, dried dark drainage on drsg. Attempts to get oob on multiple occasions, bed alarms on and functioning. Reoriented to call light et situation, easily forgets limitations. VSS, spo2 >90% on RA. Cont of bowel et bladder per bedside commode, 1-2 assist with gait belt et FWW. Follow up: Transfer to NTU.
[2016-12-08 07:23] LABS: HEMATOCRIT 26.7 % (33.0-46.0); HEMOGLOBIN 8.7 g/dL (10.0-15.0); MCH 31.1 pg (27.0-34.0); MCHC 32.6 gm/dL (32.0-36.5); MCV 95.4 fl (83.0-98.0); MPV 9.8 fl (9.4-12.4); RBC 2.8 M/uL (3.50-5.50); RDW-CV 20.9 % (11.9-14.6)
[2016-12-08 07:38] LABS: MAGNESIUM 1.8 mg/dL (1.8-2.6)
--- NOTE | 2016-12-08 16:30 | NUR ---
SIGNIFICANT EVENT: PATIENT ALERT, RESTLESS AT TIMES. ORIENTED X3. OPENS EYES SPONT AND TO VOICE. PUPILS REACTIVE BILATERALLY. PATIENT MOVES ALL 4 EXTREMITIES SPONT AND TO COMMANDS. PATIENT DENIES ANY NUMBNESS, TINGLING, OR PAIN. PATIENT HAS BEEN IN SINUS RHYTHM, HR 50-70S. PULSES PALPABLE THROUGHOUT. BP STABLE, SBP 130-160S, MAP>65. AFEBRILE. PATIENT HAS BEEN ON ROOM AIR, SATS MID 90S. BOWEL SOUNDS ACTIVE, 1 SMALL BM TODAY. ADEQUATE URINE OUTPUT. NO NEW SKIN ISSUES NOTED. FOLLOW UP: CONTINUE TO MONITOR
[2016-12-08 16:45] LABS: BLOOD UREA NITROGEN 10 mg/dL (6-24); CHLORIDE 114 mMol/L (96-110); CO2 27 mMol/L (22-32); CREATININE 0.7 mg/dL (0.5-1.1)
[2016-12-08 16:47] LABS: ANION GAP 11.5 (10.0-19.0); POTASSIUM 4.5 mMol/L (3.7-5.1); SODIUM 148 mMol/L (135-145)
[2016-12-08 17:05] LABS: CPK 1396 IU/L (21-215)
--- NOTE | 2016-12-09 05:31 | NUR ---
Significant Event: IMPULSIVE. D/O TO PLACE AT TIMES. CONFUSED STATEMENTS AT TIMES. FORGETFUL. VSS. RA. AFEBRILE. BM X2 OVERNIGHT. UP TO COMMODE FREQUENTLY. SMALL INCONTINENTS AT TIMES. HAD TO TREAT ACCUCHECK X1. C/O BACK PAIN. GAVE TYLENOL X1 WITH RELIEF. D5W CONTINUES AT 75ML/HR, COMPLETE AFTER THIS LITER. Follow up: CT OF HEAD THIS AM.
[2016-12-09 06:32] LABS: ANION GAP 9.7 (10.0-19.0); BLOOD UREA NITROGEN 10 mg/dL (6-24); CALCIUM 10.1 mg/dL (8.5-10.5); CHLORIDE 109 mMol/L (96-110); CO2 28 mMol/L (22-32); CREATININE 0.7 mg/dL (0.5-1.1); POTASSIUM 3.7 mMol/L (3.7-5.1); SODIUM 143 mMol/L (135-145)
--- NOTE | 2016-12-09 13:39 | NUR ---
SIGNIFICANT EVENT: ALL CARES TRANSFERED TO [facility] AT 1240 FLOAT RN. UP UNTIL 1240, PATIENT HAS BEEN ALERT, ORIENTED X3. OPENS EYES SPONT AND TO VOICE. PUPILS EQUAL AND REACTIVE. PATIENT MAKES SOME FORGETFUL COMMENTS AND CONFUSED STATEMENTS. PATIENT MOVES ALL 4 EXTREMITIES SPONTANEOUSLY AND TO COMMANDS. EQUAL STRENGTH IN BILAT UPPER EXTREMITIES. R) LOWER EXTREMITY IS SLIGHTLY STRONGER THAN L). PATIENT HAS BEEN DENYING NUMBNESS, TINGLING, OR PAIN. PATIENT HAS BEEN IN SINUS RHYTHM, ANTONIA AT TIMES. HR 50-70S. PULSES PALPABLE THROUGHOUT. BP HYPERTENSIVE AT THE BEGINING OF THE SHIFT, SBP 180S, LABETALOL 5 MG IV GIVEN AND [place]AN PO INITIATED. PATIENT HAS BEEN ON ROOM AIR, SATS MID 90S. BOWEL SOUNDS PRESENT, TOLERATING FINGER FOOD DIET WELL. 3 3MS TODAY. ADEQUATE URINE OUTPUT. NO NEW SKIN ISSUES NOTED. REPOSITIONED EVERY 2 HOURS AT LEAST. IV SALINE LOCKED. FOLLOW UP: CONT TO MONITOR
--- NOTE | 2016-12-09 16:43 | NUR ---
Significant Event: PT is A&O x3, forgetful, some expressive aphasia. VSS, on room air. PIV x2 to L)arm. PT denies pain. Sylvester intact to incision on head. Ambulates with gait belt, walker and 1 assist. Voiding without difficulties. BM x2 this shift. Tolerating diet. Blood sugar at 1500 was 60, gave apple juice and was then 87 on recheck. Follow up:
--- NOTE | 2016-12-10 05:37 | NUR ---
Significant Event: PT A/O WITH PERIODS OF INAPPROPRIATE COMMENTS. KNOWS SHE IS IN HOSPITAL, BUT CONVINCED (AT TIMES) THAT SHE HAS PREPARED FOOD AND NEEDS TO TEND TO IT. PT SEEMED TO BE BETTER ORIENTED WITH LESS INAPPROPRIATE STATMENTS AFTER HER PM MEDICATIONS WERE ADMINISTERED. REMAINS IMPULSIVE; PT NOTED TO BE MORE IMPULSIVE WHEN NEEDING TO USE THE BATHROOM. TRANSFERED TO [facility] BED THIS SHIFT. Follow up: CONTINUE CHRIS TOBIN RN
--- NOTE | 2016-12-10 08:39 | NUR ---
PT MOVED TO NO RISK W/ INTAKE CONSISTENTLY 75-100%. WILL CONT ENSURE BID W/ MEALS TO MAINTAIN NURITION STATUS. WILL ASSIST NEEDED.
[2016-12-10 12:02] LABS: BASOPHIL % 0.3 %; EOSINOPHIL # 0.1 K/uL (0.0-0.5); EOSINOPHIL % 1.8 %; HEMOGLOBIN 10.6 g/dL (10.0-15.0); IMMATURE GRANULOCYTE # 0.1 K/uL (0.0-0.3); IMMATURE GRANULOCYTE % 1.2 %; LYMPHOCYTE # 1.3 K/uL (0.8-4.0); LYMPHOCYTE % 17.4 %; MCH 31.2 pg (27.0-34.0); MCV 94.7 fl (83.0-98.0); MONOCYTE # 1.1 K/uL (0.0-1.0); MONOCYTE % 15.5 %; NEUTROPHIL # (ANC) 4.7 K/uL (1.8-7.8); NEUTROPHIL % 63.8 %; NRBC % 0 /100WBC (0-0.00); RDW-CV 19.4 % (11.9-14.6); WBC 7.3 K/uL (4.0-11.0)
[2016-12-10 12:05] LABS: HEMATOCRIT 32.2 % (33.0-46.0); MCHC 32.9 gm/dL (32.0-36.5)
[2016-12-10 12:06] LABS: PLATELET COUNT 226 K/uL (150-450)
[2016-12-10 12:17] LABS: ALBUMIN 2.8 gm/dL (3.5-5.0); ANION GAP 9.5 (10.0-19.0); CALCIUM 10.8 mg/dL (8.5-10.5); CREATININE 0.8 mg/dL (0.5-1.1); POTASSIUM 3.5 mMol/L (3.7-5.1); TOTAL BILIRUBIN 0.3 mg/dL (0.0-1.5); TOTAL PROTEIN 6.9 g/dL (6.0-8.4)
--- NOTE | 2016-12-10 15:33 | NUR ---
A/Ox3. Disoriented to self at times but reorients easily. PERRLA. Makes inappropriate statements at times during conversation. HR 80-100, SBP 100-130s. Afebrile. Continues on RA with o2 sats in upper 90s. Follow up: Transfer to swingbed in [place] on Saturday.
--- NOTE | 2016-12-10 16:21 | NUR ---
[facility] Swingbed Coordinator called and they will accept pt on Saturday this week when her primary care provider, Kevin Tyler MD is back in the office. Talked with patient and let her know, therapist in seeing her said she thought pt is going to inpt rehab. Discussed options with patient and she at first said she didn't think [place] had good therapy there, explained to her that we are talking about her either going back to [facility] for swingbed where her physician Kevin Tyler is, or staying here on inpt rehab, if they have beds. She said [place] would be okay. Let her know I will find out the options and talk with her again. Let Dr Calixto know and she is okay with either plan. Called [facility] on and they will have beds later in week but if pt goes to [facility] on Saturday thats fine too. Will see what Dr Charles and patient want to do.
--- NOTE | 2016-12-11 05:01 | NUR ---
Significant Event: PT RESTING ON AND OFF THROUGHOUT SHIFT. VERY IMPULSIVE AT BEGINNING OF SHIFT, IMPROVEMENT NOTED AFTER PM MEDICATIONS GIVEN. ABLE TO ORIENT TO CALL-LIGHT AND PATIENT WAS ABLE TO DEMONSTRATE PROPER USAGE. CONVERSATIONAL WITH INAPPROPRIATE COMMENTS AT TIMES. VSS, NO SIGNIFICANT CHANGES OVERNIGHT. Follow up: DISCHARGE TO SWING BED IN [facility] ON SATURDAY. CHRIS TOBIN RN
[2016-12-11 05:02] LABS: HEMATOCRIT 31.9 % (33.0-46.0); HEMOGLOBIN 10.3 g/dL (10.0-15.0); MCHC 32.3 gm/dL (32.0-36.5); MCV 96.1 fl (83.0-98.0); MPV 9.6 fl (9.4-12.4); PLATELET COUNT 221 K/uL (150-450); RBC 3.32 M/uL (3.50-5.50); RDW-CV 19.3 % (11.9-14.6)
[2016-12-11 05:17] LABS: ALBUMIN 2.9 gm/dL (3.5-5.0); ANION GAP 10.4 (10.0-19.0); CALCIUM 10.6 mg/dL (8.5-10.5); CREATININE 0.8 mg/dL (0.5-1.1); MAGNESIUM 1.3 mg/dL (1.8-2.6); PHOSPHORUS 2.7 mg/dL (2.5-4.9); POTASSIUM 3.4 mMol/L (3.7-5.1)
[2016-12-11 05:39] LABS: ABSOLUTE NEUTROPHIL CT (ANC) 3.7 K/uL (1.8-7.8); BANDED NEUTROPHIL # 0.5 K/uL (0.0-0.1); BANDED NEUTROPHILS % 7 %; LYMPHOCYTE # 2.1 K/uL (0.8-4.0); LYMPHOCYTE % 30 %; MONOCYTE # 0.7 K/uL (0.0-1.0); SEGMENTED NEUTROPHIL # 3.2 K/uL (1.8-7.8); SEGMENTED NEUTROPHIL % 46 %
--- NOTE | 2016-12-11 13:44 | NUR ---
Talked with patient and daughter at bedside, they would like to go to [facility] tomorrow, reviewed physician progress notes and will be ready for dc tomorrow. Will call and get Dr Tyler's number for physician to call. Daughter will transport, will get orders to chart.
--- NOTE | 2016-12-11 17:22 | NUR ---
PATIENT IS ALERT BUT NOT ORIENTED TO TIME OR PLACE. PATIENT IS CONFUSED AND MAKES INAPPROPRIATE COMMENTS. PATIENT HAS DROOPING ON THE LEFT SIDE OF HER MOUTH AND IS WEAK ON THE LEFT SIDE OF HER BODY. PATIENT HAS SOME EDEMA IN EXTREMETIES. PATIENT HAD AN SBP IN THE 90'S THIS AFTERNOON, SO DR WROTE TO HOLD APRESOLINE IF SBP <130. PATIENT IS ON ROOM AIR AND IS CLEAR THROUGHOUT UPPERS AND LOWERS. PATIENT HAS HAD 3 SMALL BM'S DURING MY SHIFT AND HAS ACTIVE BOWEL SOUNDS. PATIENT HAS A SURGICAL INCISION ON THE LEFT SIDE OF HER HEAD THAT IS OPEN TO ROOM AIR. PATIENT HAS AN OPEN SORE ON HER RIGHT BUTT CHEEK THAT IS OPEN TO AIR. PATIENT HAD BOTH OF THE IV'S THAT WERE IN HER LEFT ARM DC'S DUE TO LEAKING. PATIENT HAD A NEW IV PLACED IN LEFT AC BY PAULO Lopez. DR CLAYTON ORDERED FOR MAG SULFATE IV AND KCL PO DUE TO LOW LEVELS. PATIENT IS ACHS ACCU CHECKS AND HAS NOT RECEIVED ANY INSULIN FOR TREATMENT. PATIENT IS 1 ASSIST AND USES A WALKER AND GAITBELT. PATIENT CONTINUALLY FORGETS HER LIMITATIONS AND NEEDS TO BE REMINDED OF LIMITATIONS. PATIENT IS CURRENTLY UP IN CHAIR.
--- NOTE | 2016-12-12 04:46 | NUR ---
Significant Event: Patient alert, impulsive. Attempts to get out of bed frequently unassisted. Oriented x3, but inconsistent. VSS. Room air. Bowel sounds active, no bm this shift. Void frequently. 1Assist/ walker and gait belt. PIVx1 sl'd. Follow up: [place] swing bed today
[2016-12-12 05:23] LABS: BASOPHIL % 0.4 %; EOSINOPHIL # 0.1 K/uL (0.0-0.5); EOSINOPHIL % 1.4 %; HEMATOCRIT 31.5 % (33.0-46.0); HEMOGLOBIN 10.2 g/dL (10.0-15.0); IMMATURE GRANULOCYTE # 0.2 K/uL (0.0-0.3); IMMATURE GRANULOCYTE % 3.2 %; LYMPHOCYTE # 1.8 K/uL (0.8-4.0); MCH 31.6 pg (27.0-34.0); MCHC 32.4 gm/dL (32.0-36.5); MCV 97.5 fl (83.0-98.0); MONOCYTE # 1.7 K/uL (0.0-1.0); MONOCYTE % 24.3 %; MPV 9.8 fl (9.4-12.4); NEUTROPHIL # (ANC) 3.1 K/uL (1.8-7.8); NEUTROPHIL % 44.7 %; NRBC % 0 /100WBC (0-0.00); PLATELET COUNT 236 K/uL (150-450); RBC 3.23 M/uL (3.50-5.50); RDW-CV 18.9 % (11.9-14.6); WBC 6.9 K/uL (4.0-11.0)
[2016-12-12 05:45] LABS: ALBUMIN 2.9 gm/dL (3.5-5.0); ANION GAP 10.7 (10.0-19.0); CALCIUM 9.8 mg/dL (8.5-10.5); CREATININE 0.8 mg/dL (0.5-1.1); MAGNESIUM 1.7 mg/dL (1.8-2.6); POTASSIUM 3.7 mMol/L (3.7-5.1); TOTAL BILIRUBIN 0.3 mg/dL (0.0-1.5)
--- NOTE | 2016-12-12 12:01 | NUR ---
Patient discharging to [facility] today for therapies. I [facility], Dr Charles called Dr Tyler who accepted. Daughter not feeling comfortable transporting her mom so I set up ambulance transport, [facility] reports all crews out and no one available to call in so would be late this afternoon so I called [facility] and they will transport at 1300. Let nurse know and she will call report. I faxed orders. Let patient know.
--- NOTE | 2016-12-12 12:09 | NUR ---
ASSUMED CARES AT 1155. PATIENT A/O X3, FORGEFUL. DOES FOLLOW COMMANDS. MODERATE AND EQUAL STRENGTH. DENIES NUMBNESS/TINGLING. LEFT HORSESHOE INCISION STAPLED. DENIES HEADACHE AT THIS TIME. DID HAVE TYLENOL PER AM NURSE. LEFT FACIAL DROOP NOTED. LUNGS CLEAR ON ROOM AIR. UP WITH 1 ASSIST AND WALKER, VOIDS OFTEN. BOWELS ACTIVE, HAS HAD BM X 2 TODAY. ALARMS ON FOR SAFETY. PLAN TO TRANSFER TO [place] [facility] TODAY AT 1300.
--- NOTE | 2016-12-12 12:23 | NUR ---
Significant Event: Patient is A/Ox3, knows at hospital but not in [place]. Forgetful. Denies change in vision, N/V. left lateral headache 5/10, tylenol given, with some relief. Equal strength throughout. SR. SBP 80-130. RA with clear lung sounds. SPO2>95%. Active bowel sounds, BMx2, soft. Tolerate regular diet. Up with 1 assist with walker to BR, frequent trips to toilet. hi/low bed. Follow up:transfer to [place] swing [place].
--- NOTE | 2016-12-12 14:09 | NUR ---
Received voicemail from [facility] nurse that they are sending someone over to do the CD eval ordered on the . Called [facility] back and left message that patient discharged today so no need for CD eval now. Pt not appropriate at this time for inpatient alcohol treatment due to recovery from sugery for subdural hematoma and her confusion.
== END 2016-12-12 13:05 | disposition swing bed (61) | DRG 25 ==
LOC: GMED 14:50 → GICU 15:08
PROVIDERS: Anesthesiology; Internal Medicine; ADMIT Neurological Surgery
PROC: 05HM33Z Insertion of Infusion Device into Right Internal Jugular Vein, Percutaneous Approach (ICD-10-PCS; principal; 2016-12-05)
PROC: 03HB33Z Insertion of Infusion Device into Right Radial Artery, Percutaneous Approach (ICD-10-PCS; principal; 2016-12-05)
PROC: 00940ZZ Drainage of Intracranial Subdural Space, Open Approach (ICD-10-PCS; principal; 2016-12-05)
PROC: 0H9 Skin and Breast, Drainage (ICD-10-PCS; principal; 2016-12-05)
PROC: F00ZJWZ Instrumental Swallowing and Oral Function Assessment using Swallowing Equipment (ICD-10-PCS; 2016-12-06)
PROC: 30233R1 Transfusion of Nonautologous Platelets into Peripheral Vein, Percutaneous Approach (ICD-10-PCS; 2016-12-07)
PROC: 30233N1 Transfusion of Nonautologous Red Blood Cells into Peripheral Vein, Percutaneous Approach (ICD-10-PCS; 2016-12-07)
DX: S06.5X9A Traumatic subdural hemorrhage with loss of consciousness of unspecified duration, initial encounter (principal); J96.00 Acute respiratory failure, unspecified whether with hypoxia or hypercapnia; G93.5 Compression of brain; N17.9 Acute kidney failure, unspecified; D62 Acute posthemorrhagic anemia; F11.20 Opioid dependence, uncomplicated; E87.0 Hyperosmolality and hypernatremia; D69.6 Thrombocytopenia, unspecified; F10.239 Alcohol dependence with withdrawal, unspecified; D64.9 Anemia, unspecified; E78.5 Hyperlipidemia, unspecified; G93.89 Other specified disorders of brain; I25.10 Atherosclerotic heart disease of native coronary artery without angina pectoris; J44.9 Chronic obstructive pulmonary disease, unspecified; W18.30XA Fall on same level, unspecified, initial encounter; H57.04 Mydriasis; G31.9 Degenerative disease of nervous system, unspecified
CPT/HCPCS: C1713; J0690; J2001; J2370; J2997; J3010; J3475; J3480; J7030; J7040; J7050; J7060; P9016; P9035

== ENCOUNTER → 2016-12-05 | Outpatient (CLI) | payer MEDICARE ==
[~2016-12-05] MED LIST: ADVAIR 250-501 EACH INH; ALENDRONATE SOD70 MG PO; APRESOLINE25 MG PO; CALCIUM 600 +1 EA12 PO; CELEXA40 MG PO; COLACE100 MG PO; COREG3.125 MG PO; COZAAR100 MG PO; DELTASONE20 MG PO; DULERA 200 MCG/51 EA INH; DULOXETINE HCL30 MG PO; DURAGESIC1 EAC1 TRANS; FEOSOL325 MG PO; FOLIC ACID1 MG PO; LIPITOR80 MG PO; MAGOX 400400 MG PO; MS CONTIN60 MG PO; MYLANTA (MAG-AL30 ML PO; NEUTRA-PHOS (PHO1 EA PO; NICODERM (HABIT14 MG TRANS; NORCO 10-325 T1 EACH PO; OXYGEN INH; PROTONIX40 MG PO; SEROQUEL100 MG PO; SYNTHROID25 MCG PO; SYNTHROID300 MCG PO; TOPROL XL 5050 MG PO; TUMS REGULAR ST1 TAB PO; TYLENOL325 MG PO; VITAMIN B-121000 MCG PO; VITAMIN D1000 UNIT PO; VOLTAREN50 MG; WELLBUTRIN XL150 M1 PO
== END | disposition disaster alternative care site (69) ==
LOC: GAMB 14:37 → GAIR 14:37
DX: R41.82 Altered mental status, unspecified (principal); E03.9 Hypothyroidism, unspecified; E78.5 Hyperlipidemia, unspecified; F32.9 Major depressive disorder, single episode, unspecified; F10.229 Alcohol dependence with intoxication, unspecified; G40.909 Epilepsy, unspecified, not intractable, without status epilepticus; I10 Essential (primary) hypertension; R29.6 Repeated falls; Z79.899 Other long term (current) drug therapy
CPT/HCPCS: A0422; A0431; A0436; J3010

== ENCOUNTER 2016-12-18 14:00 | Inpatient (IN) | payer MEDICARE ==
[~2016-12-18] VITALS: Ht 167.6 cm; Wt 59.1 kg
--- NOTE | ~2016-12-18 | DS ---
PATIENT'S NAME: DEBBIE MAGALLANES [facility] AGE: 56 Y [address] ROOM: [id number], [place] [id number] LOCATION: GICU ADMIT DATE: 12/18/2016 Discharge Summary DISCHARGE DATE: 12/24/2016 FAMILY PHYSICIAN: Kevin Tyler MD ATTENDING PHYSICIAN: Herminia Dorado DISPOSITION: Transferred to [facility] on December 24, 2016. REASON FOR ADMISSION: The patient had underwent craniotomy for evacuation of an acute left subdural hematoma. She was discharged to a swing bed. While in the swing bed, she had what sounded like a possible seizure. She was, therefore, readmitted to the hospital for observation and treatment. TREATMENT RENDERED: The patient was observed in the neurotrauma unit. Repeat CT scan showed significant reduction in her previous subdural hematoma with no new bleeding. The patient was commenced on antiseizure medications, and there was no further evidence of any seizure activity. The patient remained stable, and by December 24, was well enough to be released. She was transferred to long-term at [facility]. Arrangements have been made for her to be followed up in the Neurosurgery Clinic for continuing monitoring of her subdural hematoma. FINAL DISCHARGE DIAGNOSES: 1. Possible seizure. 2. Status post craniotomy for left subdural hematoma. HERMINIA DORADO MD CNO/sisil /[id number] d: 12/26/16 1453 t: 12/27/16 0023, DISCHARGE SUMMARY
--- NOTE | ~2016-12-18 | HP ---
PATIENT'S NAME: DEBBIE MAGALLANES [facility] AGE: 56 Y [address] ROOM: [place] [address] LOCATION: [facility] ADMIT DATE: 12/18/2016 History & Physical DISCHARGE DATE: FAMILY PHYSICIAN: JEANE CESAR MD ATTENDING PHYSICIAN: Herminia Dorado DATE OF SERVICE: PATIENT IDENTIFICATION: Debbie Magallanes is a 56-year-old female. PRESENTING COMPLAINTS: Change in level of consciousness. HISTORY OF PRESENT ILLNESS: The patient says she was eating ice cream and suddenly she had slurred speech and could not get her thoughts together. She was at the swing bed in [place] having recently had craniotomy for evacuation of left subdural hematoma. With the alteration in the level of consciousness, a repeat head CT scan was obtained and I was asked to see the patient in transfer. PAST MEDICAL HISTORY: Significant for craniotomy and evacuation of acute left subdural hematoma. The patient did well after the surgery and was transferred to [facility] in [place] to complete her recovery. Other past medical history includes CVA, hay fever, polymyalgia, ulcerative colitis, diarrhea, depression, anxiety, and panic attacks. The patient is also hypothyroid. The patient has had previous back surgery, cholecystectomy, lumpectomy of breast. She also has a history of hypothyroidism, osteoporosis. FAMILY HISTORY: There is no family history relevant to present symptoms. CURRENT MEDICATIONS: 1. Vitamin B12. 2. Calcium with vitamin D. 3. Losartan. 4. Cymbalta. 5. Folic acid. 6. Fosamax. 7. Lipitor. 8. Seroquel. PATIENT'S NAME: DEBBIE MAGALLANES [facility] AGE: 56 Y [address] ROOM: [place] [address] LOCATION: [facility] ADMIT DATE: 12/18/2016 History & Physical DISCHARGE DATE: FAMILY PHYSICIAN: JEANE CESAR MD ATTENDING PHYSICIAN: Herminia Dorado 9. Synthroid. 10. Toprol-XL. 11. Vitamin D. 12. Hydralazine. 13. Fentanyl patch. 14. Ferrous sulfate. ALLERGIES: NO KNOWN DRUG ALLERGIES. SOCIAL HISTORY: The patient does not smoke. She is a chronic alcoholic. There is no history of drug use. REVIEW OF SYSTEMS: A 10-point review of systems was carried out. The only abnormality is as related to the present illness. PHYSICAL EXAMINATION: GENERAL: The patient is a healthy looking female who was alert and cooperative through the examination. VITAL SIGNS: Reviewed, stable. NEUROLOGIC: Speech is intact and the slurred speech she had before has subsided now. Cranial nerves, no deficits seen. Motor examination, the patient has a slight right pronator drift but this is not consistent. Gait not tested. Cerebellar testing normal. CARDIOVASCULAR: Heart sounds 1 and 2 present. RESPIRATORY SYSTEM: The patient is not short of breath at bedside. REVIEW OF IMAGING STUDIES: The patient has had a head CT scan performed in [place] on 12/18/2016. The head CT scan shows some residual subacute left subdural hematoma. The appearance has improved from the initial preoperative appearance. There is no midline shift or mass effect. IMPRESSION: A 56-year-old female with episode of altered level of consciousness while eating ice cream this morning. The patient is status post craniotomy and evacuation of subdural hematoma. MEDICAL DECISION MAKING: I feel the patient may have had a complex partial seizure. Her symptoms have recovered and they did not last very long. I am going to keep her in hospital for observation for a night or two. Monitor her anti-seizure medication. It may be possible for her to return to swing bed or to move to a alf if PATIENT'S NAME: DEBBIE MAGALLANES [facility] AGE: 56 Y [address] ROOM: [place] [address] LOCATION: [facility] ADMIT DATE: 12/18/2016 History & Physical DISCHARGE DATE: FAMILY PHYSICIAN: JEANE CESAR MD ATTENDING PHYSICIAN: Herminia Dorado she is not strong enough to return to swing bed. MD LUIS BLAKEO/sisil /[id number] CC: MIYA Venegas D: [id number] T: [id number] HISTORY & PHYSICAL
[~2016-12-18 14:00] MED LIST changes: +ALENDRONATE SOD70 MG PO; +APRESOLINE25 MG PO; +CALCIUM 600 +1 EA12 PO; +DULOXETINE HCL30 MG PO; +DURAGESIC1 EAC1 TRANS; +FEOSOL325 MG PO; +FOLIC ACID1 MG PO; +SEROQUEL100 MG PO; +TOPROL XL 5050 MG PO; +VITAMIN B-121000 MCG PO
--- NOTE | 2016-12-18 15:45 | NUR ---
Pt is 56 y/o female admit for change in mental status for . No allergies. Had recent crani for subdural in November. Came today from swingbed at [facility] via ambulance. Pt is alert and oriented x3 at this time. Dimitry present to incision on head. Hx CVA,hayfever,polymyalgia,ulcerative colitis,diarrhea,depression,anxiety,panic attacks,hypothyroid. Plan is to start anti-sz medication and monitor. Pt states she was eating ice cream today and suddenly had slurred speech and couldn't get her thoughts together. Taken for CT scan at [facility].
--- NOTE | 2016-12-18 16:58 | NUR ---
Significant Event: Patient admitted from [facility] SWB at 1500. Patient A/O x2. Forgetful/impulsive. Denies N/T. Follows commands. Moves everything spontaneously. Generalized moderate strength. NSR. VSS. Afebrile. Room air with sats in the mid 90s. LS clear and diminished. Voids per bathroom. L) parietal horseshoe stapled incision from previous craniotomy. Numerous generalized scabs noted. Bruise to inside of horseshoe incision. R) wrist PIV SLL. SBA using gaitbelt. C/O headache. Cooperative with cares. Follow up:SWB tomorrow
--- NOTE | 2016-12-19 04:39 | NUR ---
Significant Event: ALERT, DISORIENTED TO PLACE. FORGETFUL, IMPULSIVE AT TIMES. NO N/T. C/O HEADACHE. TYLENOL AT 2300. MODERATE STRENGTH THROUGHOUT. NSR. HR 80S, SBP 110S. 95-98% RA. LUNGS CLEAR. RIGHT FOREARM PIV SL'D. UP TO BATHROOM 1 ASSIST. 3 BM'S. LEFT PARIETAL HORSESHOE INCISION STAPLED. BRUISING AND SCABS TO ARMS, LEGS. Follow up: PLAN TO TRANSFER TO [facility] TODAY
--- NOTE | 2016-12-19 12:05 | NUR ---
Called [facility] and talked with [facility] coordinator, they were working on plan to get pt to [facility] so would like us to continue that plan, not able to stay assisted at [facility] and will need half-way therapies. Called [facility] [phone] and left voicemail for public health social worker to call me back re: referral.
--- NOTE | 2016-12-19 13:44 | NUR ---
Significant Event:PT ALERT TO PERSON AND PLACE. OCCASIONALLY WILL MAKE SOME CONFUSING STATEMENT. NO C/O NUMBNESS OR TINGLING. UP WITH SBA HANDS ON. CLEAR LUNG SOUNDS ACTIVE BS. HORSESHOE INCISION TO HEAD. SMALL INCISION ON TOP OF HEAD WITH SUTURES. NO C/O PAIN. ON HIGH LOW BED. ENCOURAGED TO USE CALL LIGHT. POSSIBLE DC TO SNF TOMORROW? Follow up:
--- NOTE | 2016-12-19 14:34 | NUR ---
When I entered pt room her nurse call light was on and when answered she asked the nurse to come cut up her food for her so she could eat. I reintroduced myself and care management services to her. I let her know that I talked with the [facility] Coordinator told me they were working on a discharge plan to [place] to [facility] and asked that we finish that plan from here so I called [facility] and am faxing them information. She tells me she was hoping to just go home. Explained to her that she isn't quite ready to be independent at home and has noone to help her and isn't stead on her feet so needs more time with therapy. She says okay to plan to [facility]. Talked with Nisreen at [facility] and faxed her updated referral information. She will look at it and talk with [facility] and let me know if they will accept, told her pt ready to come to them tomorrow. Will follow.
--- NOTE | 2016-12-20 04:12 | NUR ---
Significant Event:A/Ox3. Forgeful. Impulsive. Denies N/T. Pupils 2.0 and brisk. Moderate, equal strength. SBPs in 90s-120s. Heart rate in 70s-80s. Lungs clear on room air. Horseshoe incision to right side of head -open to air. Dimitry are to be removed today. Takes pills whole in water. Right wrist IV saline locked. Up 1 assist. Follow up:SNF
--- NOTE | 2016-12-20 10:23 | NUR ---
Called Nisreen, administrator social welfare at [facility] [phone] this morning, she reports their clinical team is getting ready to meet to talk about Maureens care and needs and she will call me back afterward to let me know if they can accept.
--- NOTE | 2016-12-20 10:43 | NUR ---
Significant Event: 56 year old female. full code. KNA. Admitted to [facility] on 12/18 for SDH. SDH occured on December 05 and evacuation was done per Dr. Charles. Readmitted with small SDH per Dr. Dorado when she was noted to have slurred speech at [place] swing bed. a/o to person/month and year. cueing needed to place. states chronic pain to back. denies numbness/tingling. equal strength throughout. speech clear. luz maria to surgical site to head open to air. continent of bowel and bladder. tele with NSR. takes meds whole. regular diet. plan- possible transfer to [facility] if accepted today.
--- NOTE | 2016-12-20 19:54 | NUR ---
Significant Event: A/O to person/month/year. unable to recall place. conversationally confused and makes odd statements about needing to go get items from different places in her home and when her daughter called told her she "went home last night and came back this morning". b/p hypotensive this shift. dr. eugene updated with orders to hold b/p meds if SBP less than 120. 500 ml normal saline bolus administered. patient denies dizziness or lightheadedness. does not use call light. continent of bowel and bladder. sutures and luz maria to head discontinued by dr. eugene this evening. plan- another 500ml bolus of normal saline, monitor b/p. discharge to SNF when placement found.
[2016-12-20 20:15] LABS: BASOPHIL # 0.1 K/uL (0.0-0.2); BASOPHIL % 0.8 %; EOSINOPHIL # 0.1 K/uL (0.0-0.5); EOSINOPHIL % 1.1 %; HEMATOCRIT 26.5 % (33.0-46.0); HEMOGLOBIN 8.6 g/dL (10.0-15.0); IMMATURE GRANULOCYTE % 0.5 %; LYMPHOCYTE # 1.9 K/uL (0.8-4.0); LYMPHOCYTE % 29.1 %; MCH 31.5 pg (27.0-34.0); MCHC 32.5 gm/dL (32.0-36.5); MCV 97.1 fl (83.0-98.0); MONOCYTE # 0.8 K/uL (0.0-1.0); MONOCYTE % 12.2 %; MPV 9.8 fl (9.4-12.4); NEUTROPHIL # (ANC) 3.6 K/uL (1.8-7.8); NEUTROPHIL % 56.3 %; NRBC % 0 /100WBC (0-0.00); PLATELET COUNT 277 K/uL (150-450); RBC 2.73 M/uL (3.50-5.50); RDW-CV 16.2 % (11.9-14.6); WBC 6.5 K/uL (4.0-11.0)
[2016-12-20 20:33] LABS: ALBUMIN 2.6 gm/dL (3.5-5.0); ALK PHOS 121 IU/L (33-138); ALT 24 IU/L (12-78); ANION GAP 10.5 (10.0-19.0); AST 18 IU/L (10-40); BLOOD UREA NITROGEN 13 mg/dL (6-24); CALCIUM 8.9 mg/dL (8.5-10.5); CHLORIDE 113 mMol/L (96-110); CO2 25 mMol/L (22-32); CREATININE 0.7 mg/dL (0.5-1.1); POTASSIUM 3.5 mMol/L (3.7-5.1); SODIUM 145 mMol/L (135-145); TOTAL BILIRUBIN 0.1 mg/dL (0.0-1.5); TOTAL PROTEIN 6.5 g/dL (6.0-8.4)
--- NOTE | 2016-12-21 04:58 | NUR ---
Significant Event: Patient forgetful of place. Confused statements at times. Denies pain/N/T. Denies blurry vision. Follows commands. Moves all extremities spontaneously with equal strength throughout. Room air. BS active. SBA. PIV SL. Given 500 ml bolus for hypotension this shift. Follow up: SNF placement.
--- NOTE | 2016-12-21 11:36 | NUR ---
911 Called to talk with Nisreen at [facility], per the motel front desk clerk, she isn't in until 929 or a bit after. Let them know I would call back to talk with her. 1000 Called back and talked wthugo Nisreen, she states that they can accept Dionne on Saturday at 0900, IVA cordova will be here to apple picker at that time. Let her know that his was fine. RN to RN number was left on the front of the chart for report to be called in before she leaves on Saturday. Daughter, Kacey was in her room so I stopped in to update her to this. She was in agreement with the plan to go to [facility] on Saturday at 0900. Also talked with Dionne about this, after talking for a while and explaining why home alone wasn't safe, she agreed to go to the [facility] for a while. Packet started, new orders were printed, the old filled out orders were left on the chart for to refer to when he did the new medications on Saturday. ID Screen is started, but it has not cleared yet in the [employer] system. CM to continue to follow and assist.
--- NOTE | 2016-12-21 15:05 | NUR ---
Significant Event: Alert to person, , and time at points. Forgetful/confused at times. Denies N/T. Follows commands. moves everything spontaneously. Headache most of shift. Hypotensive at times. VSS. Afebrile most of shift. Room air with sats in the mid to high 90s. LS clear and diminished. Voids per bathroom. BM x2 this shift. L) parietal surgical incision site. Open to air. Sutures/luz maria removed previously. Healing. PIV to R) Hand. SLL. SBA using gaitbelt and walker. Tylenol given for headache. Pleasant and cooperative with cares. Follow up: [facility] Saturday at 0900
--- NOTE | 2016-12-22 04:19 | NUR ---
Significant Event: Disoriented to place. Mostly appropriate with conversation tonight. Follows commands. Ambulates with 1 assist/gait belt. Unsteady at times. Equal strength x 4 extremities. THready pulses to lower extremities. VS WNL. RA. Absent cough. HI Lo bed. Bed alarm on for safety. PIV x1 SL. Follow up: Swingbed Mon.
--- NOTE | 2016-12-22 12:27 | NUR ---
A-SCREENED D/T LOS ADMITTED FOR ALTERED LOS; S/P CRANIOTOMY FOR EVAC OF L)SUBDURAL HEMATOMA PLAN TO D/C TO [facility] ON SATURDAY (12/24) HT: 66 IN. WT: 59.1 KG. BMI: 20.6 LABS AND MED REVIEWED DIET RX: REGULAR. PO INTAKE 75-100% EST NUTR NEEDS: 4503-6957 KCALS (25-30 KCALS/KG) 59-71 GM PROTEIN (1.0-1.2 GM/KG) 1 ML FLUID/KCAL D-NOT AT NUTRITION RISK; NO NUTRITION DX IDENTIFIED I-CONTINUE W/CURRENT DIET RX M/E-ASSIST NEEDED
--- NOTE | 2016-12-22 17:00 | NUR ---
Significant Event: Patient is A&O x3 but is very forgetful. Can be impulsive at times. Also appears to have some hallunications at times. Follows commands. Equal strength in all extremities. Denies numbness & tingling. Pupils equal & brisk. Complains of a headache on the L) side of her head & I last gave her Tylenol @ 1321 with some relief noted. VSS. IV to R) wrist SL. Up with 1 assist, gait belt, and walker. High/low bed. Incision to head open to air. Cooperative with cares. Follow up: Plan for [facility] Saturday.
--- NOTE | 2016-12-23 04:37 | NUR ---
Significant Event: The patient is Alert and Oriented x3, forgetful. Denies Numbness and Tingling currently. Pain to her Back and head, Gave tylenol last at 0352. Fentanyl patch replaced to the right upper arm. VSS. On room air. Up with 1 Assist, Gaitbelt. Equal and Moderate strength. Pupils are equal and reactive. Scattered scabbed abrasions, old incision to her head healing. PIV to the Left AC saline locked. Follow up:
--- NOTE | 2016-12-23 16:02 | NUR ---
Significant Event: Patient is A&O x3 but very forgetful. Follows commands. Equal strength in all extremities. Denies numbness & tingling. Pupils equal & brisk. High/low bed because she can be impulsive, forgets to use call light. At times does make "off the wall" comments but will easily re-orient. VSS. Complains of a headache on the L) side of her head and I last gave her Tylenol @ 1053 with relief noted. Fentanyl patch to her R) shoulder that is intact. IV to L) AC SL. Up with 1 assist and gait belt. Incision to the L) side of her head that is open to air. Follow up: Plan to transfer to [facility] 12/24 @ 0900.
--- NOTE | 2016-12-24 04:16 | NUR ---
Significant Event: The patient is Alert and Oriented x3. Forgetful at times. Denies Numbness and Tingling. Moves all extremities spontaneously and to command. Equal and Moderate strength. Pupils are equal and reactive. Old incision to head is healing. Scattered scabbed abrasions. VSS. On room air. Complaints of a headache and also chronic back pain, gave Tylenol last at 0352. Fentanyl patch to the Right upper arm. PIV to the Left AC saline locked. She is a SBA with a gaitbelt. Follow up: [facility] today at 0900.
--- NOTE | 2016-12-24 07:50 | NUR ---
Patient alert and oriented x3, forgetful to place at times. Follows commands. Moderate and equal strength. Denies numbness/tingling. Incision to left side of head from previous procedure healed. Lungs clear and dim on room air. Nsr. Bowels active, had bm this am. Denies pain this am. Iv in left a/c will be dc'd prior to transfer. Up with standby assist and gaitbelt. Plan for transfer to [facility] today at 9am.
--- NOTE | 2016-12-24 12:49 | NUR ---
Call to [facility] this morning to see why Beka' ID Screen had not been cleared and sent back to me yet. I talked with Presley Luna , he says that he was waiting on the fax to be sent to him to confirm what Beka' last name was. I let him know that I had faxed all of that on Saturday morning so he should have it. He says he will look at it and then get back to me. I later got a faxed copy of her ID Screen and faxed it up the floor so MICHELLE Douglas could place it in her packet before she left for [facility] today. No other questions, needs or concerns. CM to continue to follow and assist.
== END 2016-12-24 09:25 | DRG 66 ==
LOC: GICU 14:44
PROVIDERS: ADMIT Neurological Surgery
DX: I62.00 Nontraumatic subdural hemorrhage, unspecified (principal); R56.9 Unspecified convulsions; R51 Headache; M81.0 Age-related osteoporosis without current pathological fracture; E03.9 Hypothyroidism, unspecified; F32.9 Major depressive disorder, single episode, unspecified; M35.3 Polymyalgia rheumatica; Z86.73 Personal history of transient ischemic attack (TIA), and cerebral infarction without residual deficits
CPT/HCPCS: J7030

== ENCOUNTER → 2017-01-08 | Outpatient (CLI) | payer MEDICARE | END | disposition disaster alternative care site (69) | LOC: GRAD 09:26 | DX: I62.00 Nontraumatic subdural hemorrhage, unspecified (principal); I62.03 Nontraumatic chronic subdural hemorrhage ==